=== PATIENT | male | born 1995 | race Caucasian/White ===

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

== ENCOUNTER 2017-06-27 18:32 | Emergency (ER) | payer MEDICAID ==
[2017-06-27 18:38] VITALS: BP 111/73; PULSE 81; RESP 20; TEMP 98.1; O2SAT 97
--- NOTE | 2017-06-27 19:08 | C.PDOC ---
History Of Present Illness 21 year old male presents to the ED c/o right ring finger pain and associated swelling. Patient reports he had a ring stuck on his right 4th finger for the past 5 days. Patient reports he tried using soap, oil, and floss but nothing worked. Patient denies weakness, numbness, tingling, trauma, injury, fall. Time Seen by Provider: 06/27/17 18:50 Chief Complaint (Nursing): Finger,Hand,&Wrist History Per: Patient History/Exam Limitations: no limitations Onset/Duration Of Symptoms: Days Current Symptoms Are (Timing): Still Present Quality: Tightness, "Pain" Recent travel outside of the [place]: No Additional History Per: Patient Past Medical History Reviewed: Historical Data, Nursing Documentation, Vital Signs Vital Signs: Last Vital Signs Temp 98.1 F 06/27/17 18:35 Pulse 81 06/27/17 18:35 Resp 20 06/27/17 18:35 BP 111/73 06/27/17 18:35 Pulse Ox 97 06/27/17 19:12 - Medical History PMH: No Chronic Diseases Surgical History: No Surg Hx Family History: States: Unknown Family Hx - Social History Hx Alcohol Use: Yes Hx Substance Use: Yes - Immunization History Hx Tetanus Toxoid Vaccination: No Hx Influenza Vaccination: No Hx Pneumococcal Vaccination: No Review Of Systems Constitutional: Negative for: Fever, Chills Cardiovascular: Negative for: Chest Pain Respiratory: Negative for: Cough, Shortness of Breath Gastrointestinal: Negative for: Abdominal Pain Musculoskeletal: Positive for: Hand Pain Skin: Positive for: Bruising. Negative for: Rash Neurological: Negative for: Weakness, Numbness Physical Exam - Physical Exam Appears: Non-toxic, No Acute Distress Skin: Normal Color, Warm, Dry, No Ecchymosis Head: Atraumatic, Normacephalic Eye(s): bilateral: Normal Inspection Nose: No Discharge Oral Mucosa: Moist Neck: Normal ROM Chest: Symmetrical Extremity: Normal ROM, Tenderness (Right 4th finger), Capillary Refill (<2 seconds), Swelling (Right 4th finger), Other (ring stuck on right 4th finger) Pulses: Left Radial: Normal, Right Radial: Normal Neurological/Psych: Oriented x3, Normal Motor, Normal Sensation Gait: Steady ED Course And Treatment O2 Sat by Pulse Oximetry: 97 (On RA) Pulse Ox Interpretation: Normal Medical Decision Making Medical Decision Making: Impression: right ring finger pain with constricting ring Plan: Ring cutter used to cut and remove ring. Patient tolerated well. Ring successfully removed. 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 - Scribe Statement The provider has reviewed the documentation as recorded by the Scribe Jc Mesa All medical record entries made by the Scribe were at my direction and personally dictated by me. I have reviewed the chart and agree that the record accurately reflects my personal performance of the history, physical exam, medical decision making, and the department course for this patient. I have also personally directed, reviewed, and agree with the discharge instructions and disposition.
== END 2017-06-27 19:17 | disposition home or self-care (01) ==
LOC: C.ER 18:32
DX: S60.444A External constriction of right ring finger, initial encounter (principal); W49.04XA Ring or other jewelry causing external constriction, initial encounter